=== PATIENT | male | born 1995 | race Caucasian/White ===

== ENCOUNTER 2018-09-30 20:09 | Emergency (ER) | payer BC ==
--- NOTE | 2018-09-30 20:25 | UC ---
Hand/Wrist HPI - HPI Summary HPI Summary: 23 yo male presents with LEFT finger injury. He tells me that around 1600 today he dropped a kettle rendon on his left middle and ring fingers. Since that time has had pain and bruising to his nails. ROM intact. He is right handed. Has applied ice. He is concerned for fracture. - History Of Current Complaint Stated Complaint: FINGERS INJURY Time Seen by Provider: 09/30/18 20:18 Hx Obtained From: Patient Onset/Duration: Sudden Onset Severity Initially: Moderate Severity Currently: Moderate Pain Intensity: 7 Pain Scale Used: 0-10 Numeric - Allergies/Home Medications Allergies/Adverse Reactions: Allergies Allergy/AdvReac Type Severity Reaction Status Date / Time peanut Allergy Anaphylatic Verified 09/30/18 20:26 Shock treenuts Allergy Anaphylatic Uncoded 09/30/18 20:26 Shock Home Medications: Home Medications EPINEPHrine [Epipen] 0.3 mg IJ 09/30/18 [History] PMH/Surg Hx/FS Hx/Imm Hx - Additional Past Medical History Additional PMH: None - Surgical History Surgical History: None - Family History Known Family History: Positive: Non-Contributory - Social History Occupation: Employed Part-time Lives: With Family Alcohol Use: Occasionally Substance Use Type: None Smoking Status (MU): Never Smoked Tobacco Review of Systems All Other Systems Reviewed And Are Negative: Yes Constitutional: Positive: Negative Skin: Positive: Negative Respiratory: Positive: Negative Cardiovascular: Positive: Negative Neurovascular: Positive: Negative Musculoskeletal: Positive: Other: - Left ring and middle finger injury Neurological: Positive: Negative Psychological: Positive: Negative Physical Exam - Summary Physical Exam Summary: GENERAL: NAD. WDWN. No pain distress. SKIN: No rashes, sores, lesions, or open wounds. CHEST: No accessory muscle use. Breathing comfortably and in no distress. CV: Pulses intact radial and ulnar. Cap refill <2seconds MSK: LEFT middle and ring digits with TTP distal to DIP and leila. Mild subungal hematoma at base of nails without open wound or avulsion. FROM. 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 No edema or obvious bony deformities. NEURO: Alert. Sensations intact hand and all fingers. PSYCH: Age appropriate behavior. Triage Information Reviewed: Yes Vital Signs: Vital Signs: Temp Pulse Resp BP Pulse Ox 99.4 F 71 18 148/88 98 09/30/18 20:28 09/30/18 20:28 09/30/18 20:28 09/30/18 20:28 09/30/18 20:28 Vital Signs Reviewed: Yes Hand/Wrist Course/Dx - Course Course Of Treatment: XR: wet read with distal tuft fx at 3rd and 4th digits. Discussed results with pt. Provided with U finger splint to use as much as possible. Advised to rest and apply ice. May take tylenol/ibuprofen as directed for discomfort. - Differential Dx/Diagnosis Provider Diagnosis: Closed fracture of tuft of distal phalanx of finger Discharge - Sign-Out/Discharge Documenting (check all that apply): Patient Departure All imaging exams completed and their final reports reviewed: No - Discharge Plan Condition: Stable Disposition: HOME Patient Education Materials: Finger Fracture (ED), Crush Injury (ED) Referrals: No Primary Care Phys,NOPCP [Primary Care Provider] - Additional Instructions: If you develop a fever, shortness of breath, chest pain, new or worsening symptoms - please call your PCP or go to the ED immediately. Your blood pressure was high at todays visit. Please see your primary provider within 4 weeks for recheck and re-evaluation. 1) Please rest and ice your fingers to reduce pain and swelling. 2) Use the finger splints as much as possible or juvenal tape your fingers if active 3) May take tylenol/ibuprofen as directed for discomfort - Billing Disposition and Condition Condition: STABLE Disposition: Home
[2018-09-30 20:32] VITALS: BP 148/88
--- NOTE | 2018-10-01 11:49 | UC ---
- Progress Note Progress Note: RADIOLOGY REPORT REVIEWED AND CONFIRMS NONDISPLACED FRACTURES OF THE SWATI OF THE DISTAL PHALANGES OF THE THIRD AND FOURTH FINGERS. WOULD CONSIDER ORTHOPEDIC FOLLOW-UP FOR RE-EVALUATION. I CALLED THE PATIENT TO ADVISE OF ABOVE AND TO PROVIDE ORTHOPEDIC CONTACT INFORMATION HOWEVER THERE WAS NO ANSWER AND THE VOICE MAILBOX IS FULL. IF PATIENT CALLS BACK WOULD ADVISE HIM OF ABOVE AND GIVE HIM ORTHOPEDIC CONTACT INFORMATION FOLLOWS: [facility] [place] [facility] [place] Course/Dx - Diagnoses Provider Diagnoses: Closed fracture of tuft of distal phalanx of finger Discharge - Sign-Out/Discharge Documenting (check all that apply): Post-Discharge Follow Up All imaging exams completed and their final reports reviewed: Yes - Discharge Plan Condition: Stable Disposition: HOME Patient Education Materials: Finger Fracture (ED), Crush Injury (ED) Referrals: No Primary Care Phys,NOPCP [Primary Care Provider] - Additional Instructions: If you develop a fever, shortness of breath, chest pain, new or worsening symptoms - please call your PCP or go to the ED immediately. Your blood pressure was high at todays visit. Please see your primary provider within 4 weeks for recheck and re-evaluation. 1) Please rest and ice your fingers to reduce pain and swelling. 2) Use the finger splints as much as possible or juvenal tape your fingers if active 3) May take tylenol/ibuprofen as directed for discomfort - Billing Disposition and Condition Condition: STABLE Disposition: Home
== END 2018-09-30 21:03 | disposition home or self-care (01) ==
LOC: UCEAST 20:09
DX: S62.633A Displaced fracture of distal phalanx of left middle finger, initial encounter for closed fracture (principal); S62.635A Displaced fracture of distal phalanx of left ring finger, initial encounter for closed fracture; W22.8XXA Striking against or struck by other objects, initial encounter; Y93.B3 Activity, free weights; Y92.9 Unspecified place or not applicable; Y99.8 Other external cause status
CPT/HCPCS: 73140; 99201; G0463